=== PATIENT | male | born 1960 | race Caucasian/White ===

== ENCOUNTER 2018-03-12 11:08 | Day surgery (SDC) | payer OTHER, MEDICAID ==
[2018-03-12] MEDS ORDERED: NALOXONE HCL 0.4 MG/ML INJ ONE (11:45)
[2018-03-12] MEDS ORDERED: fentaNYL 100 MCG/2 ML INJ ONE (11:45)
[2018-03-12] MEDS ORDERED: FLUMAZENIL 0.5 MG/5 ML MDV IVP ONE (11:45)
[2018-03-12] MEDS ORDERED: MIDAZOLAM 2 MG/2 ML VIAL ONE (11:45)
[2018-03-12] MEDS ORDERED: fentaNYL 100 MCG/2 ML INJ IVP PRN (11:46)
[2018-03-12] MEDS ORDERED: MIDAZOLAM 2 MG/2 ML VIAL IVP PRN (11:46)
[2018-03-12] MEDS ORDERED: FLUMAZENIL 0.5 MG/5 ML MDV IVP PRN (11:46)
[2018-03-12] MEDS ORDERED: NALOXONE HCL 0.4 MG/ML INJ IVP PRN (11:46)
[2018-03-12] MEDS ORDERED: NS 1,000 ML IV SCH (12:00)
[2018-03-12] MEDS ORDERED: TRIAMCINOLONE ACETONIDE 200 MG/5 ML MDV IM ONE (12:20)
[2018-03-12] MEDS ORDERED: LIDOCAINE 1% 300 MG/30 ML SDV ONE (12:20)
--- NOTE | 2018-03-12 12:58 | PDGENHP ---
History & Physical Chief Complaint: LBP WITH RT LEG RADICULOPATHY History of Present Illness: H/O INTERMITTENT BACK PAIN X YEARS. NEW RT ANKLE FRACTURE WITH PAIN. Pertinent Past, Social, Family History: N/A Relevant Physical Exam: -04/11 LBP Cardiorespiratory Assessment: RRR, CTA
--- NOTE | 2018-03-12 12:59 | PDPROPOC ---
Sedation Plan of Care Sedation Plan of Care: vital signs stable, mental status noted, patient educated of risks, benefits, alternatives, patient can tolerate sedation ASA Classification: ASA 2 Planned drugs: fentanyl, midazolam Mallampati Score: Class 1 Mallampati Reference Image: Patient passed 3-3-2 rule?: Yes
[2018-03-12] MEDS ORDERED: ONDANSETRON 4 MG/2 ML VIAL IVP PRN (13:39)
--- NOTE | 2018-03-12 13:39 | PDRADPN ---
Radiology Procedure Note Date of Procedure: 03/12/18 Radiologist: Tabitha Kingston Anesthesia: IV Sedation Pre-op Diagnosis: LBP Post-op Diagnosis: SAME Indication: PAIN Procedure: L4-5 LUAN Inf/Abcess present in the surg proc area at time of surgery?: No
[2018-03-12 14:19] VITALS: BP 118/82
== END 2018-03-12 14:50 | disposition home or self-care (01) ==
LOC: FIMAGING 11:08 → MERGE 11:08 → FIMAGING 14:50
PROVIDERS: ATTEND Radiology Diagnostic Radiology
PROC: B01B1ZZ Fluoroscopy of Spinal Cord using Low Osmolar Contrast (ICD-10-PCS; principal; 2018-03-12 13:47)
PROC: 3E0S33Z Introduction of Anti-inflammatory into Epidural Space, Percutaneous Approach (ICD-10-PCS; principal; 2018-03-12 13:47)
PROC: 3E0S3BZ Introduction of Anesthetic Agent into Epidural Space, Percutaneous Approach (ICD-10-PCS; principal; 2018-03-12 13:47)
DX: M48.061 Spinal stenosis, lumbar region without neurogenic claudication (principal); M54.16 Radiculopathy, lumbar region
CPT/HCPCS: J2250; J2310; J3010; J3301

== ENCOUNTER 2018-05-15 10:18 | Observation (INO) | payer OTHER, MEDICAID ==
--- NOTE | 2018-05-15 10:26 | EDPHY ---
HPI/HX/ROS/PE/MDM Narrative: CHIEF COMPLAINT: Chest pain HPI: This patient is a 57 year-old male with history of ulcerative colitis s/p colostomy, prior CVA or TIA, and seizure disorder. He presents via EMS complaining of chest pain. Today, he was at physical therapy for rehab following a right ankle fracture when he had sudden onset midsternal crushing chest pain with associated shortness of breath. He rates this at 10/10 severity. This is worse when he is lying flat and somewhat relieved when he is sitting. EMS administered 2 rounds of 0.4mg nitro which decreased his pain to 4 /10. He was noted to be hypoxic around 89 on room air; EMS placed the patient on 4L O2. The patient denies any known history of cardiac issues. He got his cast off of his ankle six months ago and has been ambulatory. He denies pain or swelling in his legs. He does endorses history of similar chest pain a long time ago, of unknown etiology. He denies history of prior cardiac workup. No fever, vomiting, diarrhea, urinary complaints, or other associated symptoms. No recent chest trauma. REVIEW OF SYSTEMS: A comprehensive 10 system review of systems is otherwise negative aside from elements mentioned in the history of present illness and medical decision making. PMH: CVA, seizures, ulcerative colitis s/p colostomy SOCIAL HISTORY: Lives in [place]. . Does not abuse tobacco, drugs, or alcohol. PHYSICAL EXAM: General:Patient is alert, in no acute distress. ENT:Eyes are normal to inspection. ENT inspection normal. Neck: Normal inspection. Full range of motion. Respiratory:No respiratory distress. Breath sounds normal bilaterally. Cardiovascular: Regular rate and rhythm. Strong peripheral pulses. Normal cap refill. Abdomen:The abdomen is nontender to palpation. There are no peritoneal signs. There are normal bowel sounds. Back: Normal to inspection. No tenderness to palpation. Skin: Normal color. No rash. Warm and dry. Extremities: Normal appearance. Full range of motion. Neuro: Oriented x3. Normal motor function. Normal sensory function. ED Course: 10:20 Met EMS at bedside. 57 year old male presents with chest pain and associated dyspnea onset this morning during physical therapy. Plan for chest x- ray, labs including CBC, chemistries, d-dimer. Chest x-ray is negative for acute processes. Reviewed laboratory studies. Positive d-dimer. Plan for CTA chest. Labs otherwise largely unremarkable. 12:[address] Trujillo, radiologist. CTA is negative for PE. Reassessed patient. Plan to admit for further workup and observation given intermediate risk of CAD. 12:50 Spoke with hospitalist service. Dr. Flores accepts admission for chest pain. - Data Points Imaging Results: Imaging Impressions Chest X-Ray 05/15/18 10:22 Impression: Clear lungs. No acute process. Chest/Thorax CTA 05/15/18 10:59 Impression: 1. No acute pulmonary embolus. 2. Right middle and lower lobe nodules measuring up to 3.8 mm. If the patient is at high risk, would consider 6-12 month follow-up CT. Findings and recommendations discussed with Marck Hanna MD at 1210 hour, 05/15/2018. Imaging: Discussed imaging studies w/ weight caller Radiologist Laboratory Results: Laboratory Results 05/15/18 10:21 05/15/18 10:21 05/15/18 05/15/18 05/15/18 10:27 10:25 10:25 WBC RBC Hgb Hct MCV MCH MCHC RDW Plt Count MPV Neut % (Auto) Lymph % (Auto) [place] % (Auto) Eos % (Auto) Baso % (Auto) Nucleat RBC Rel Count Absolute Neuts (auto) Absolute Lymphs (auto) Absolute Monos (auto) Absolute Eos (auto) Absolute Basos (auto) Absolute Nucleated RBC Immature Gran % Immature Gran # D-Dimer Sodium Potassium Chloride Carbon Dioxide Anion Gap BUN Creatinine Estimated GFR Glucose Hemoglobin A1c Pending Estim Average Glucose Pending Calcium POC Troponin I 0.00 ng/mL ng/mL (0.00-0.08) Triglycerides 181 mg/dL H mg/dL (40-150) Cholesterol 212 mg/dL mg/dL (140-220) Cholesterol Risk Factr 1.2 H (0.2-1.0) LDL Cholesterol, Calc 136 mg/dL H mg/dL (80-100) LDL Risk Factor 1.0 (0.2-1.0) VLDL Cholesterol 36 mg/dL H mg/dL (8-25) Non-HDL Cholesterol 172 mg/dL H mg/dL (90-129) HDL Cholesterol 40 mg/dL mg/dL (40-65) LDL/HDL Ratio 3.40 RATIO RATIO (1.00-3.64) Cholesterol/HDL Ratio 5.30 RATIO H RATIO (1.00-4.97) 05/15/18 05/15/18 05/15/18 10:21 10:21 10:21 WBC 4.88 10^3/uL 10^3/uL (3.80-9.50) RBC 4.26 10^6/uL L 10^6/uL (4.40-6.38) Hgb 13.9 g/dL g/dL (13.7-17.5) Hct 40.4 % % (40.0-51.0) MCV 94.8 fL fL (81.5-99.8) MCH 32.6 pg pg (27.9-34.1) MCHC 34.4 g/dL g/dL (32.4-36.7) RDW 12.4 % % (11.5-15.2) Plt Count 200 10^3/uL 10^3/uL (150-400) MPV 9.2 fL fL (8.7-11.7) Neut % (Auto) 63.8 % % (39.3-74.2) Lymph % (Auto) 21.1 % % (15.0-45.0) [place] % (Auto) 9.8 % % (4.5-13.0) Eos % (Auto) 4.1 % % (0.6-7.6) Baso % (Auto) 1.0 % % (0.3-1.7) Nucleat RBC Rel Count 0.0 % % (0.0-0.2) Absolute Neuts (auto) 3.11 10^3/uL 10^3/uL (1.70-6.50) Absolute Lymphs (auto) 1.03 10^3/uL 10^3/uL (1.00-3.00) Absolute Monos (auto) 0.48 10^3/uL 10^3/uL (0.30-0.80) Absolute Eos (auto) 0.20 10^3/uL 10^3/uL (0.03-0.40) Absolute Basos (auto) 0.05 10^3/uL 10^3/uL (0.02-0.10) Absolute Nucleated RBC 0.00 10^3/uL 10^3/uL (0-0.01) Immature Gran % 0.2 % % (0.0-1.1) Immature Gran # 0.01 10^3/uL 10^3/uL (0.00-0.10) D-Dimer 0.66 ug/mLFEU H ug/mLFEU (0.00-0.50) Sodium 142 mEq/L mEq/L (135-145) Potassium 4.0 mEq/L mEq/L (3.3-5.0) Chloride 109 mEq/L mEq/L (97-110) Carbon Dioxide 24 mEq/l mEq/l (22-31) Anion Gap 9 mEq/L mEq/L (8-16) BUN 22 mg/dL mg/dL (7-23) Creatinine 1.2 mg/dL mg/dL (0.7-1.3) Estimated GFR > 60 Glucose 103 mg/dL H mg/dL (70-100) Hemoglobin A1c Estim Average Glucose Calcium 9.3 mg/dL mg/dL (8.5-10.4) POC Troponin I Triglycerides Cholesterol Cholesterol Risk Factr LDL Cholesterol, Calc LDL Risk Factor VLDL Cholesterol Non-HDL Cholesterol HDL Cholesterol LDL/HDL Ratio Cholesterol/HDL Ratio Point of Care Test Results: Chemistry 05/15/18 10:27 POC Troponin I 0.00 ng/mL ng/mL (0.00-0.08) General Initial Vital Signs: Initial Vital Signs Temperature (C) 36.8 C 05/15/18 10:22 Heart Rate 92 05/15/18 10:22 Respiratory Rate 17 05/15/18 10:22 Blood Pressure 106/69 05/15/18 10:22 O2 Sat (%) 94 05/15/18 10:22 O2 Delivery Mode Room Air O2 (L/minute) 2 Allergies/Adverse Reactions: hydromorphone HCl [From Dilaudid] Allergy (Verified 07/25/14 09:49) pseudoephedrine Allergy (Verified 07/25/14 09:49) Home Medications: Medication Instructions Recorded Carbamazepine 07/25/14 Indomethacin 07/25/14 Sertraline HCl 07/25/14 TOPIRAMATE 07/25/14 Carbamazepine 1,000 mg PO HS 03/06/18 Cyclobenzaprine 10 mg PO PRN 03/06/18 Indomethacin 400 mg PO BID 03/06/18 Ondansetron HCl 4 mg PO PRN 03/06/18 Plavix 75 mg PO DAILY 03/06/18 Sertraline HCl 200 mg PO DAILY 03/06/18 Sumatriptan PRN 03/06/18 Topiramate 225 mg PO HS 03/06/18 Departure - Departure Disposition: [facility] Inpatient Acute Clinical Impression: Chest pain Qualifiers: Chest pain type: other chest pain Qualified Code(s): R07.89 - Other chest pain Condition: Fair Report Scribed for: Marck Hanna Report Scribed by: Cindy Nazario Date of Report: 05/15/18 Time of Report: 15:43 Physician Review and Approval Statement: Portions of this note were transcribed by an ED scribe. I personally performed the history, physical exam, and medical decision making; and confirm the accuracy of the information in the transcribed note.
[2018-05-15 10:35] LABS: PLATELET COUNT 200 10^3/uL (150-400)
[2018-05-15] MEDS ORDERED: IOPAMIDOL (ISOVUE 370) 100 ML BTL IV ONE (11:34)
[2018-05-15] MEDS ORDERED: ONDANSETRON 4 MG/2 ML VIAL ONE (11:34)
[2018-05-15] MEDS ORDERED: NITROGLYCERIN 0.4 MG BTL SL PRN (13:20)
--- NOTE | 2018-05-15 14:24 | CPEKG ---
Test Reason : OPEN Blood Pressure : / mmHG Vent. Rate : 086 BPM Atrial Rate : 087 BPM P-R Int : 187 ms QRS Dur : 097 ms QT Int : 369 ms P-R-T Axes : 073 042 053 degrees QTc Int : 442 ms Sinus rhythm Borderline T abnormalities, anterior leads Confirmed by Marck Hanna ([id number]) on 05/15/2018 2:23:35 PM Referred By: Confirmed By:Marck Hanna
--- NOTE | 2018-05-15 14:24 | CPEKG ---
Test Reason : OPEN Blood Pressure : / mmHG Vent. Rate : 061 BPM Atrial Rate : 062 BPM P-R Int : 209 ms QRS Dur : 107 ms QT Int : 435 ms P-R-T Axes : 076 017 051 degrees QTc Int : 439 ms Sinus rhythm Borderline prolonged [place] interval Borderline T abnormalities, anterior leads Confirmed by Marck Hanna ([id number]) on 05/15/2018 2:23:55 PM Referred By: Confirmed By:Marck Hanna
--- NOTE | 2018-05-15 14:47 | PDGENHP ---
History and Physical - Chief Complaint chest pain - History of Present Illness 57yo M with h/o ulcerative colitis s/p colectomy, possible TIA, chronic pain presents with chest pain. Started this morning while doing new exercise at physical therapy. Substernal, sharp pain radiating to neck and left arm. Associated with dyspnea and nausea. No diaphoresis. Improved with sitting forward. Unable to elicit if exertional as he did not move after pain started. Pain persisted until received supplemental oxygen and 2 sublingual nitroglycerin at which time pain went from 9/10 to 2/10. He had similar pain to this decades ago but is unsure of evaluation done. Never had cardiac issues, no stress tests. In the ED, stable vitals. Initial ecg non-ischemic and negative POC troponin. D- dimer mildly elevated; CTA chest did not reveal PE. Given his intermediate risk of coronary disease, he is being admitted for further risk stratification. History Information - Allergies/Home Medication List Allergies/Adverse Reactions: hydromorphone HCl [From Dilaudid] Allergy (Verified 07/25/14 09:49) pseudoephedrine Allergy (Verified 07/25/14 09:49) Home Medications: Carbamazepine 07/25/14 [Last Taken Unknown] Indomethacin 07/25/14 [Last Taken Unknown] Sertraline HCl 07/25/14 [Last Taken Unknown] TOPIRAMATE 07/25/14 [Last Taken Unknown] Carbamazepine 1,000 mg PO HS 03/06/18 [Last Taken 03/11/18] Cyclobenzaprine 10 mg PO PRN 03/06/18 [Last Taken 03/12/18] Indomethacin 400 mg PO BID 03/06/18 [Last Taken 03/12/18] Ondansetron HCl 4 mg PO PRN 03/06/18 [Last Taken 03/12/18] Plavix 75 mg PO DAILY 03/06/18 [Last Taken 03/04/18] Sertraline HCl 200 mg PO DAILY 03/06/18 [Last Taken 03/12/18] Sumatriptan PRN 03/06/18 [Last Taken 03/11/18] Topiramate 225 mg PO HS 03/06/18 [Last Taken 03/11/18] I have personally reviewed and updated: family history, medical history, social history, surgical history - Past Medical History Additional medical history: ulcerative colitis (not on therapy, previously on steroids many years ago), complex migraines, possible TIA x2 (received tPA once although these may have been r/t migraine), epilepsy, chronic pain - Surgical History Additional surgical history: colectomy with ileostomy formation, multiple orthopedic procedures - Family History Additional family history: father: coronary disease but unknown age or circumstances - Social History Smoking Status: Never smoked Tobacco Use: Cigar (occasionally) Alcohol Use: Rarely Drug Use: None Additional social history: lives with Review of Systems Review of Systems: ROS: 10pt was reviewed & negative except for what was stated in HPI & below Physical Exam Physical Exam: Temp Pulse Resp BP Pulse Ox 36.8 C 66 14 127/81 H 96 05/15/18 10:22 05/15/18 12:36 05/15/18 12:36 05/15/18 12:36 05/15/18 12:36 Constitutional: no apparent distress, appears nourished, not in pain Eyes: PERRL, anicteric sclera, EOMI Ears, Nose, Mouth, Throat: moist mucous membranes, hearing normal, ears appear normal, no oral mucosal ulcers Cardiovascular: regular rate and rhythym, no murmur, rub, or gallop, No JVD, No edema Respiratory: no respiratory distress, no rales or rhonchi, clear to auscultation Gastrointestinal: normoactive bowel sounds, soft, non-tender abdomen, no palpable masses, other (old midline laparotomy scar well healed, ostomy bag) Skin: warm, normal color, no rashes or abrasions, no fluctuance, no induration, No mottled Musculoskeletal: full muscle strength, no muscle tenderness, normal joint ROM, no joint effusions Neurologic: AAOx3, sensation intact bilaterally, CN II-XII Intact, No weakness Psychiatric: interacting appropriately, not anxious, not encephalopathic, thought process linear Lab Data & Imaging Review 05/15/18 10:21 05/15/18 10:21 WBC 4.88 10^3/uL (3.80-9.50) 05/15/18 10:21 RBC 4.26 10^6/uL (4.40-6.38) L 05/15/18 10:21 Hgb 13.9 g/dL (13.7-17.5) 05/15/18 10:21 Hct 40.4 % (40.0-51.0) 05/15/18 10:21 MCV 94.8 fL (81.5-99.8) 05/15/18 10:21 MCH 32.6 pg (27.9-34.1) 05/15/18 10:21 MCHC 34.4 g/dL (32.4-36.7) 05/15/18 10:21 RDW 12.4 % (11.5-15.2) 05/15/18 10:21 Plt Count 200 10^3/uL (150-400) 05/15/18 10:21 MPV 9.2 fL (8.7-11.7) 05/15/18 10:21 Neut % (Auto) 63.8 % (39.3-74.2) 05/15/18 10:21 Lymph % (Auto) 21.1 % (15.0-45.0) 05/15/18 10:21 [place] % (Auto) 9.8 % (4.5-13.0) 05/15/18 10:21 Eos % (Auto) 4.1 % (0.6-7.6) 05/15/18 10:21 Baso % (Auto) 1.0 % (0.3-1.7) 05/15/18 10:21 Nucleat RBC Rel Count 0.0 % (0.0-0.2) 05/15/18 10:21 Absolute Neuts (auto) 3.11 10^3/uL (1.70-6.50) 05/15/18 10:21 Absolute Lymphs (auto) 1.03 10^3/uL (1.00-3.00) 05/15/18 10:21 Absolute Monos (auto) 0.48 10^3/uL (0.30-0.80) 05/15/18 10:21 Absolute Eos (auto) 0.20 10^3/uL (0.03-0.40) 05/15/18 10:21 Absolute Basos (auto) 0.05 10^3/uL (0.02-0.10) 05/15/18 10:21 Absolute Nucleated RBC 0.00 10^3/uL (0-0.01) 05/15/18 10:21 Immature Gran % 0.2 % (0.0-1.1) 05/15/18 10:21 Immature Gran # 0.01 10^3/uL (0.00-0.10) 05/15/18 10:21 D-Dimer 0.66 ug/mLFEU (0.00-0.50) H 05/15/18 10:21 Sodium 142 mEq/L (135-145) 05/15/18 10:21 Potassium 4.0 mEq/L (3.3-5.0) 05/15/18 10:21 Chloride 109 mEq/L (97-110) 05/15/18 10:21 Carbon Dioxide 24 mEq/l (22-31) 05/15/18 10:21 Anion Gap 9 mEq/L (8-16) 05/15/18 10:21 BUN 22 mg/dL (7-23) 05/15/18 10:21 Creatinine 1.2 mg/dL (0.7-1.3) 05/15/18 10:21 Estimated GFR > 60 05/15/18 10:21 Glucose 103 mg/dL (70-100) H 05/15/18 10:21 Calcium 9.3 mg/dL (8.5-10.4) 05/15/18 10:21 POC Troponin I 0.00 ng/mL (0.00-0.08) 05/15/18 10:27 Visualized and Interpreted Chest x-ray results: Yes Chest X-Ray results: no infiltrate, normal, normal heart size Visualized and Interpreted EKG results: Yes EKG Interpretation: Positive for: other (NSR, incomplete RBBB, flattened T waves in V2-V5, no acute ischemia) Assessment & Plan Assessment: 57yo M with h/o ulcerative colitis s/p colectomy, possible TIA, chronic pain presents with chest pain. Admitted for further risk stratification. Plan: #Acute chest pain: Intermediate risk of coronary disease requiring further evaluation. Initial ecg/troponin negative for ischemia. CTA chest negative for PE/aortic pathology. - Serial troponin/ecg per protocol - Lexiscan stress test w/MPI. Unable to exercise due to ankle injury. Patient had caffeine around 1pm on 05/15. Will have to wait 12 hours before test , he is aware and agreeable. - TTE - Telemetry - A1c, lipids #? h/o TIA: Reportedly had 2 episodes. Received tPA with one of these. Unclear if true vascular event or r/t complex migraine. He is on clopidogrel although the indication for this is questionable. Nonetheless, will continue for now. #UC s/p colostomy: Chronic. No issues. He does ostomy care on his own. #Pulmonary nodules: Right middle and lower lobes up to 3.8mm. Consider f/u in 6- 12 months. #Seizure d/o: Continue home carbamazepine, topiramate. #Migraines: Gets sumatriptan injections. Will trial toradol prn. #Chronic pain: Does not use opioids. Will continue home flexeril, sertraline. Diet: cardiac, no caffeine VTE ppx: SCDs Code: full Dispo: Admit under observation for evaluation of chest pain.
[2018-05-15] MEDS ORDERED: KETOROLAC 15 MG/1 ML SDV IVP ONE (15:18)
--- NOTE | 2018-05-15 15:23 | CPEKG ---
Test Reason : OPEN Blood Pressure : / mmHG Vent. Rate : 065 BPM Atrial Rate : 065 BPM P-R Int : 203 ms QRS Dur : 103 ms QT Int : 416 ms P-R-T Axes : 066 022 055 degrees QTc Int : 433 ms Sinus rhythm Borderline prolonged [place] interval Abnormal R-wave progression, early transition Borderline T abnormalities, anterior leads Confirmed by Kali Severino ([id number]) on 05/15/2018 3:23:33 PM Referred By: Confirmed By:Kali Severino
--- NOTE | 2018-05-15 16:33 | ECHO ---
[email or web address] [address] [address] Main: [phone] Fax: Transthoracic Echocardiogram Name: MARIAH WATSON MR#: [id number] Study Date: 05/15/2018 Study Time: 03:30 PM Date of : 1960 Age: 57 year(s) Height: 175.3 cm (69 in.) Weight: 83.01 kg (183 lb.) BSA: 1.99 m2 Gender: Male Examination: Echo Indication: Eval LV fx/wall motion abnormality Image Quality: Contrast: Requested by: Holland Flores BP: 104 mmHg/80 mmHg Heart Rate: Rhythm: Indication: Eval LV fx/wall motion abnormality Procedure Staff Food Mixer: Jackelyn Stephenson RDCS Reading Physician: Tucker Yeung MD Requesting Provider: Conclusions: Normal size left ventricle. Normal global systolic LV function. The ejection fraction is estimated to be 60-65 %. No regional wall motion abnormality. Normal diastolic LV function. There is a moderator band noted in the right ventricle. Trivial mitral valve regurgitation. Trivial tricuspid valve regurgitation. Trivial anterior pericardial effusion. Measurements: Chambers Valvular Assessment AV/MV Valvular Assessment TV/PV Normal Normal Normal Name Value Range Name Value Range Name Value Range Ao Anel (MM): 4.3 cm (2.2 cm-3.7 AV Vmax: 0.87 m/s (1 m/s-1.7 cm) m/s) IVSd (2D): 1.0 cm (0.6 cm-1.1 AV meanP mmHg ( - ) cm) MV E Vmax: 0.63 m/s ( - ) LVDd (2D): 4.8 cm (4.2 cm-5.9 MV A Vmax: 0.50 m/s ( - ) cm) MV E/A: 1.26 ( - ) LVDs (2D): 3.0 cm (2.1 cm-4 cm) LVPWd (2D): 1.0 cm (0.6 cm-1 cm) LVEF (MOD4): 67 % (>=55 %) EF Range: 60-65 % Continued Measurements: Chambers Valvular Assessment AV/MV Patient: MARIAH WATSON Study Date: 05/15/2018 Page 1 of 2 03:30 PM Name Value Name Value LADs: 3.5 cm MV E' Septal: 0.06 m/s LADs Lon.7 cm MV E/E' Septal: 10.80 LA Area: 11.3 cm2 MV E/E' Lateral: 9.10 Additional Vessels Name Value Ao Ascendin.1 cm Findings: Left Ventricle: Normal size left ventricle. No LV hypertrophy. Normal global systolic LV function. The ejection fraction is estimated to be 60-65 %. No regional wall motion abnormality. Normal diastolic LV function. Right Ventricle: Normal size right ventricle. There is a moderator band noted in the right ventricle. Left Atrium: The left atrium is normal in size. Right Atrium: The right atrium is normal in size. Mitral Valve: The mitral valve is normal in appearance and function. Trivial mitral valve regurgitation. Aortic Valve: The aortic valve is normal in appearance and function. The aortic valve is tri-leaflet. Tricuspid Valve: The tricuspid valve is normal in appearance and function. Trivial tricuspid valve regurgitation. Pulmonic Valve: The pulmonic valve is normal in appearance and function. Aorta: The aorta is normal. Pericardium: Trivial anterior pericardial effusion. There is pericardial fat. (No Signature Object) Patient: MARIAH WATSON Study Date: 05/15/2018 Page 2 of 2 03:30 PM [id number]
[2018-05-15] MEDS: ACETAMINOPHEN 325 MG TAB PO PRN (18:13)
[2018-05-16] MEDS: ACETAMINOPHEN 325 MG TAB PO PRN (05:46)
[2018-05-16] MEDS ORDERED: CYCLOBENZAPRINE 10 MG TAB PO PRN (08:09)
[2018-05-16] MEDS ORDERED: TOPIRAMATE 25 MG TAB PO SCH (09:00)
[2018-05-16] MEDS ORDERED: ASPIRIN 81 MG CHEWABLE TAB PO SCH (09:00)
[2018-05-16] MEDS ORDERED: CLOPIDOGREL BISULFATE 75 MG TAB PO SCH (09:00)
[2018-05-16] MEDS ORDERED: TOPIRAMATE 100 MG TAB PO SCH (09:00)
[2018-05-16] MEDS ORDERED: SERTRALINE HCL 100 MG TAB PO SCH (09:00)
[2018-05-16] MEDS ORDERED: REGADENOSON 0.4 MG/5 ML SYR IVP ONE (09:26)
--- NOTE | 2018-05-16 09:57 | ASMTCASEMG ---
Living Arrangements What is your living Answers: With Spouse arrangement? Who do you live with? Type Of Residence What kind of residence do Answers: House you live in? Discharge Plan Comments Coordination Status Comments Notes: Pt is a 57 y/o man with a hx of ulcerative colitis s/p colectomy and possible TIA. Pt started having chest pain while working with his physical therapist. OT has been ordered along w/ a stress test. Needs are TBD at this time. CM available for changes. Plan: TBD Date Signed: 05/16/2018 09:56 AM Electronically Signed By:JERARDO Meade
--- NOTE | 2018-05-16 11:27 | CPR ---
DATE OF PROCEDURE: 05/16/2018 REASON FOR TEST: Chest discomfort. ORDERING PHYSICIAN: Dr. Holland Flores. Resting EKG shows a sinus rhythm with a rate of 65. There are no arrhythmias. No ischemic changes noted. Resting blood pressure 130/82, oxygen saturation 93 , heart rate 65. Prior to testing he states that he has a mild chest pain that is typical for him. He has chronic pain all over his body. STRESS PORTION: Lexiscan nuclear stress test. Lexiscan was injected, followed by saline flush. Cardiolite was then given, followed by saline flush. He became flushed feeling with mild chest discomfort that he had described as usual for him. Peak blood pressure 126/82, oxygen saturation 95%, heart rate peaked at 96. EKG remained stable with no ischemic changes. Approximately 2 minutes post injection, he suddenly became quiet and not answering questions with very shallow respirations. Stat team was called. With stimulation, he did arouse and said, "My breathing." Oxygen had been already started on him. He was answering questions, but was vague. Stat team arrived within 1 minute and took over. Throughout this time, his EKG remained stable with no arrhythmias. No ischemic changes were noted. His blood pressures remained stable. His final blood pressure while stat team prepared him to return to his room was 122/80, heart rate 71, oxygen saturation 100%. Due to this complication, the post imaging was canceled. By history, he has a history of migraines, epilepsy, and possibly a TIA . He did have tPA given for this at some time previous to this hospitalization. When leaving the imaging lab, he was talkative. Dr. Holland Flores saw him as part of the stat team and has been following him on the Hospitalist service. He will continue to follow him in the PCU unit. SUPERVISING PHYSICIAN: Dr. Tucker Yeung. /[id number]/MODL [id number]
[2018-05-16 11:37] VITALS: BP 122/76
--- NOTE | 2018-05-16 12:55 | PDDCSUM ---
Discharge Summary Discharge Summary: Date of Admission: 05/15/2018 Date of Discharge: 05/16/2018 Procedures/Studies: regadenoson stress with MPI Discharge Diagnoses: 1. Acute chest pain 2. Suspect pericarditis 3. Brief loss of consciousness 4. Hyperlipidemia 5. ? h/o TIA 6. UC s/p colostomy 7. Pulmonary nodules 8. Seizure d/o 9. Chronic pain Brief Hospital Course by Problem: 1. Acute chest pain: Serial trop/ecg negative. TTE with normal LV function and no WMA. Lexiscan stress with MPI was non-diagnostic but resting images and ECG were normal. This pain was slightly better with leaning forward. Additionally, the TTE showed a small anterior pericardial effusion and he had anterior T wave inversions on ECG making pericarditis a reasonable unifying diagnosis. He was discharged on high dose nsaids for 5 days. 2. Loss of consciousness: Occurred immediately after regadenoson infusion. Continuous ecg monitoring without ischemia or arrhythmia. Suspect vasodilation lead to brief syncopal episode. 3. HLD: LDL 136. He would benefit from being on a statin. 4. ? h/o TIA: Reportedly had 2 episodes. Received tPA with one of these. Unclear if true vascular event or r/t complex migraine. He is on clopidogrel although the indication for this is questionable. Nonetheless, this was continued. 5. UC s/p colostomy: Chronic. No issues. He does ostomy care on his own. 6. Pulmonary nodules: Right middle and lower lobes up to 3.8mm. Consider f/u in 6-12 months. 7. Seizure d/o: Continued home carbamazepine, topiramate. 8. Migraines: Gets sumatriptan injections. 9. Chronic pain: Does not use opioids. Will continue home flexeril, sertraline. Medications: Please refer to EMR for complete list. Changes this hospitalization include addition of short course of ibuprofen and H2RA. Follow Up Plan: 1. PCP clinic visit in 1-2 weeks to assess chest symptoms 2. Discuss starting statin with patient given his elevated LDL 3. Consider repeating chest CT in 6-12 months to monitor pulmonary nodules Physical Exam: Vitals and telemetry reviewed. Alert and oriented. RRR without murmur or rub on cardiac exam. Lungs clear. Abdomen soft, ostomy in place. No lower extremity edema or JVD.
[2018-05-16] MEDS ORDERED: carBAMazepine 200 MG TAB PO SCH (21:00)
== END 2018-05-16 13:28 | disposition home or self-care (01) ==
LOC: EDUNIT# → F2W 12:53
PROVIDERS: ADMIT Internal Medicine; ATTEND Internal Medicine
DX: R07.89 Other chest pain (principal); R06.02 Shortness of breath; R91.8 Other nonspecific abnormal finding of lung field; E78.5 Hyperlipidemia, unspecified; Z86.73 Personal history of transient ischemic attack (TIA), and cerebral infarction without residual deficits; Z93.3 Colostomy status; G43.909 Migraine, unspecified, not intractable, without status migrainosus; G40.909 Epilepsy, unspecified, not intractable, without status epilepticus
CPT/HCPCS: 71046; 71275; 78452; 93005; 93017; 93306; 96374; 99285; G0378; J1885; J2405; J2785; Q9967; 84484-PO